=== PATIENT | male | born 1995 | race African-American/Black ===

== ENCOUNTER 2020-05-10 03:59 | Emergency (ER) | payer SELFPAY ==
[~2020-05-10] VITALS: Ht 185.4 cm; Wt 74.0 kg
[2020-05-10 04:09] VITALS: BP 147/94
[2020-05-10] MEDS ORDERED: TETANUS, DIPHTHERIA, PERTUSSIS VAC/PF 0.5ML (>7YR OLD) IM ONE (05:00)
[2020-05-10] MEDS ORDERED: IBUPROFEN 600MG TABLET PO ONE (05:00)
[2020-05-10] MEDS ORDERED: BACITRACIN ZINC OINT UDPKT TOP ONE (05:00)
== END 2020-05-10 06:44 | disposition home or self-care (01) ==
LOC: ER 04:54
DX: S01.81XA Laceration without foreign body of other part of head, initial encounter (principal); W22.8XXA Striking against or struck by other objects, initial encounter; Y93.89 Activity, other specified; Y92.018 Other place in single-family (private) house as the place of occurrence of the external cause
CPT/HCPCS: 12013; 70486; 90471; 90715; 99284